=== PATIENT | female | born 1965 | race Caucasian/White ===

== ENCOUNTER 2024-05-28 08:09 | Emergency (ER) | payer OTHER, SELFPAY ==
[2024-05-28 08:26] VITALS: BP 130/77; PULSE 80; RESP 20; TEMP 36.4; O2SAT 100
[2024-05-28 08:38] VITALS: BP 130/77; PULSE 80; RESP 20; TEMP 36.4; O2SAT 100
--- NOTE | 2024-05-28 08:55 | ED.EAR ---
HPI - Ear Problem General Chief complaint: Dental/Oral Stated complaint: tooth/ear/throat History of Present Illness HPI Narrative: Patient presents with right ear pain. Patient denies any drainage from her ear states she also has seasonal allergies and takes her singular at bedtime but is not taking anything else [id number] for her symptoms. No fever no cough no shortness of breath. Related Data Home Medications Medication Instructions Recorded Confirmed fluticasone fur. 200 mcg-umeclid inhalation 05/28/24 62.5 mcg-vilant 25 mcg inhalat.powder (Trelegy Ellipta) semaglutide (weight loss) 0.25 mg subcut 05/28/24 mg/0.5 mL subcutaneous pen injector (Wegovy) Allergies Allergy/AdvReac Type Severity Reaction Status Date / Time No Known Allergies Allergy Verified 05/28/24 08:31 Review of Systems Review of Systems: CONSTITUTIONAL: Denies chills, or sweats. Reports fever and generalized body aches EYES: Denies visual changes, redness, or discharge. ENT: Denies otalgia. Reports nasal congestion runny nose and sore throat CARDIOVASCULAR: Denies chest pain, palpitations, or edema. RESPIRATORY: Denies dyspnea. Reports occasional cough GASTROINTESTINAL: Denies abdominal pain, nausea, vomiting, or diarrhea. GENITOURINARY: Denies dysuria or hematuria. SKIN: Denies rash or itching. MUSCULOSKELETAL: Denies back pain, joint pain, or myalgia. Reports generalized body aches NEUROLOGIC: Denies headache, numbness, or weakness. PSYCHIATRIC: Denies anxiety or depression. PMFSH Comments At time of signature, agree with nursing past medical, surgical, social and family history. There is no relevant family history pertinent to the presenting complaint Exam Narrative: The patient is a well-developed, well-nourished in no acute distress. SKIN: Skin is warm and dry without erythema, swelling or exudate. There is good turgor. No tenting. HEAD: Atraumatic. Normocephalic. No temporal or scalp tenderness. EYES: Moist and bright. Sclera and conjunctivae normal. No discharge. PERRLA. Extraocular motions intact. Gross visual acuity intact. EARS: Pinna is normal shape and contour. Clear external auditory canals. TM pearly whitley with good cone of light, no erythema or suppuration. Bilateral cerumen noted no gross hearing deficit. NOSE: pink, moist mucosa with good air movement. Clear rhinorrhea without nasal flaring. Septum midline. Mouth: moist mucous membranes. THROAT; mild erythema noted to posterior oropharynx with moderate postnasal drainage. Without exudate or ulceration.. Uvula midline. Normal movement of soft palate. NECK: Supple and nontender with full range of motion without discomfort. No meningeal signs. LUNGS: Equal and bilateral breath sounds without wheezes, rales or rhonchi. CHEST: The chest wall is without retractions or use of accessory muscles. HEART: Has a regular rate and rhythm without murmur, gallops, click or rub. ABDOMEN: Soft, nontender with positive active bowel sounds. No rebound tenderness. EXTREMITIES: Without cyanosis, clubbing or edema. Equal 2+ distal pulses and 2 second capillary refill noted. NEUROLOGIC: alert, active, . The patient moves all extremities with normal muscle strength. Normal muscle tone is noted. Normal coordination is noted. NO focal neurological findings noted. Course Course Level of Care: Express Care Visit Vital Signs Vital signs: Vital Signs Temperature 36.4 C 05/28/24 08:26 Pulse Rate 80 05/28/24 08:26 Respiratory Rate 20 05/28/24 08:26 Blood Pressure 130/77 05/28/24 08:26 Pulse Oximetry 100 05/28/24 08:26 Oxygen Delivery Room Air 05/28/24 08:26 Temperature 36.4 C 05/28/24 08:38 Pulse Rate 80 05/28/24 08:38 Respiratory Rate 20 05/28/24 08:38 Blood Pressure 130/77 05/28/24 08:38 Pulse Oximetry 100 05/28/24 08:38 Oxygen Delivery Room Air 05/28/24 08:38 Medical Decision Making Vital Signs Vital Signs: Vi
== END 2024-05-28 09:08 | disposition home or self-care (01) ==
LOC: EXPBETH 08:15
PROVIDERS: Emergency Provider Nurse Practitioner Family
DX: H69.91 Unspecified Eustachian tube disorder, right ear (principal); H92.01 Otalgia, right ear
CPT/HCPCS: 99203; G0463

== ENCOUNTER 2025-01-14 11:03 | Emergency (ER) | payer OTHER, SELFPAY ==
--- OUTSIDE RECORDS SUMMARY | 2025-01-14 11:05 | XMS_ITS | Clinical Summary ---
Author Organization [facility] Address [address], [place] Care Team Providers Care Recreation Program Coordinator Name Role Phone Kade Newsome (Jeffy) Primary Care Provide r Social History Tobacco Use Types Packs/Day Years Used Date Smoking Tobacco: Never Assessed Comments Unknown Sex and Gender Information Value Date Recorded Sex Assigned at Not on file Legal Sex Female 1:27 PM EDT Gender Identity Not on file Sexual Orientation Not on file Plan of Treatment Health Maintenance Due Date Last Done Comments CT Colonography 1967 Colon Cancer Screening Year Sigmoidoscopy 1967 Colonoscopy 1967 Colorectal Cancer Screening 1967 FIT 1967 HIV Screening 1967 Hepatitis C Screening 1967 Pap Smear 1967 Annual Physical 1969 DTAP,Tdap and Td Vaccines (1 - Tdap) 1985 Cervical Cancer Screening 1997 HPV/Cotest 1997 Mammogram 2007 Cologuard DNA Screen for Colon CA 2012 Fecal Occult Blood Testing 2012 Pneumococcal Vaccine: 50+ Ye ars (1 of 1 - PCV) 2017 Shingles Vaccine (1 of 2) 2017 Depression Screening Yearly 10/04/2024 Influenza Vaccine 05/04/2025 HIB Vaccines Aged Out No longer eligi ble based on patient's age to complete this topic Pneumococcal Vaccine: Peds ( 0-5Y) & At-Risk Patients (6- 49Y) Aged Out No longer elig ible based on patient's age to complete this topic Insurance [place] [employer] [id number] [employer] Care Teams Recreation Program Coordinator Relationship Specialty Start Date End Date Kade Newsome MD (Ioannis) [address] [place] [id number] PCP - General Family Medicine 06/01/23
--- OUTSIDE RECORDS SUMMARY | 2025-01-14 11:05 | XMS_ITS ---
Author Organization [facility] Address [address] [place] [address] Care Team Providers Care Crm Marketing Manager Name Role Phone Jeffy Newsome MD) Primary Care Provide Yulisa Bowden Unavailable [phone] Allergies Allergen (clinical drug ingredient) Drug/Non Drug Allergy documented on EMR Reaction Allergy Type Onset Date Status Penicillin rash Drug Allergy Active Results Component Value Reference Range Notes Urinalysis Reviewed date:09/18/2023 07:22:06 PM Interpretation:Normal Performing Lab: Notes/Report: Normal MERCEDES neg NEG - NEG mercedes/ul NIT neg NEG - NEG URO 0.2 NORM - NORM mg/dl PRO neg NEG - NEG mg/dl pH 6.0 5 - 7.01 BLO neg NEG - NEG Que/ul SG 1.025 1.000 - 1.010 KET neg NEG - NEG mg/dl NEGIN neg NEG - NEG mg/dl GLU neg NEG - NEG mg/dl *Urine Cx [id number] Reviewed date:09/23/2023 09:19:36 AM Interpretation:Positive Performing Lab:[facility], [address] [place] [address], [place], Phone - [phone], Director - Mago Notes/Report: Urine Culture, Routine Final report Result 1 Escherichia coli Cefazolin <=4 ug/mL Cefazolin with an SHIVANI <=16 predicts susceptibility to the oral agents cefaclor, cefdinir, cefpodoxime, cefprozil, cefuroxime, cephalexin, and loracarbef when used for therapy of uncomplicated urinary tract infections due to E. coli, Klebsiella pneumoniae, and Proteus mirabilis. 10,000-25,000 colony forming units per mL Antimicrobial Susceptibility S = Susceptible; I = Intermediate; R = Resistant P = Positive; N = Negative MICS are expressed in micrograms per mL Antibiotic RSLT#1 RSLT#2 RSLT#3 RSLT#4 Amoxicillin/Clavulanic Acid S Ampicillin S Cefepime S Ceftriaxone S Cefuroxime S Ciprofloxacin S Ertapenem S Gentamicin S Imipenem S Levofloxacin S Meropenem S Nitrofurantoin S Piperacillin/Tazobactam S Tetracycline S Tobramycin S Trimethoprim/Sulfa S REASON FOR VISIT frequency, burning, lower back pain [id number], cough, sinus drainage x5days Medications Medication SIG (Take, Route, Frequency, Duration) Notes Start Date End Date Status Fluticasone Propionate 50 MCG/ACT 2 spray in each nostril Nasally once a day for 7 day(s) 09/18/2023 Active guaiFENesin ER 1200 MG 1 tablet as neede d Orally every 12 hrs for 5 days 09/18/2023 09/23/2023 Active Trelegy Ellipta Acti ve Lisinopril Active Social History Tobacco Use: Social History Observation Description Date Details (start date - stop date) Never Smoker NA - NA Tobacco Use/Smoking Question Answer Notes You are a nonsmoker Tobacco use other than smoking: Question Answer Notes Are you an other tobacco user? No Vital Signs Temperature 97.5 degrees Fahrenheit 09/18/20 23 Blood pressure systolic 136 mm Hg 09/18/20 23 Blood pressure diastolic 83 mm Hg 023 Heart Rate 88 /min 09/18/2023 Respiratory Rate 16 /min 09/18/2023 Height 67 in 09/18/2023 Weight 375 lbs 09/18/2023 BMI 58.73 kg/m2 09/18/2023 Oximetry 98 % 09/18/2023 Weight-kg 170.1 kg 09/18/2023 Encounters Encounter Location Date Provider Diagnosis [facility] [address] [place] [address] 09/18/2023 Yulisa Marino Dysuria R30.0 ; Acute URI J06.9 and Low back pain, unspecified back pain laterality, unspecified chronicity, unspecified whether sciatica present M54.50 Assessments Encounter Date Diagnosis (ICD Code) Assessment Notes Treatment Notes Treatment Clinical Notes Section Notes 09/18/2023 Dysuria (ICD-10 - R30.0) You were seen in our office today for symptoms of an acute urinary tract infection.Your rapid Urine Analysis at our office is NORMAL.Will delay antibiotics until culture results available. It is important that you stay hydrated. Increase water intake.A urine specimen has been sent to the lab for culture. The results will be posted online on your patient portal in approximately 2-4 days. We will contact you if a change in your treatment is required.Follow up with urgent care or your primary care provider/gynecolo gist if your symptoms don't improve in 3 days.You should be evaluated in the emergency department or urgent care facility if your symptoms worsen (high fever, repeated vomiting, severe abdominal pain, chest pain, breathing difficulty). 09/18/2023 Acute URI (ICD-10 - J06.9) Your symptoms are suggestive of an upper respiratory infection, most commonly of viral origin.For relief from soreness of throat use Chloraseptic spray, Cepachol lozenges, or salt water gargles.Take OTC Acetaminophen (Tylenol) and/or Ibuprofen (Advil, Motrin) for fever or pain relief if required.Take warm steam inhalation, warm compresses, OTC Mucinex to loosen up your secretions, thus promoting their drainage.Use Saline or Flonase nasal spray to relieve nasal blockage and congestion.Rest, keep yourself hydrated and avoid exertion.Your illness is contagious and hence avoid close contact and sharing of personal materials with others. Take simple home food and temporarily avoid fast food, greasy food, carbonated drinks, smoking and alcohol intake during the illness. Return to the Urgent care or contact Primary Care Provider if no improvement in symptoms within 3-5 days.Reach the Emergency Department for: any worsening of symptoms, new fever >101, high fever >104F, recurrent vomiting, inability to retain fluids, breathing difficulty, chest pain. 09/18/2023 Low back pain, unspecified back pain laterality, unspecified chronicity, unspecified whether sciatica present (ICD-10 - M54.50) 09/18/2023 Other Access your visit summary and after-visit care instructions via our online Patient Portal by visiting [email or web address]. Smoking is exceedingly harmful to your heart and lung health. Please call 8-377-QHBS-NOW or visit [email or web address].g ov/[email or web address] to help quit, and improve your fpc health. The home is the most common place where children and non-smoking adults are exposed to secondhand smoke. Secondhand smoke causes increased risk of asthma, certain cancers or infections, and heart disease in children and adults. Please follow up with your primary care provider if any other concerns: If you do not have a primary care provider you can obtain one by: a) Calling [phone] or b) Going to [email or web address] Plan Of Treatment Medication Medication Name Sig Start Date Stop Date Notes Fluticasone Propionate 50 MCG/ACT 2 spray in each nostril Nasally once a day for 7 day(s) 09/18/2023 guaiFENesin ER 1200 MG 1 tablet as neede d Orally every 12 hrs for 5 days 09/18/2023 09/23/2023 Treatment Notes Assessment Notes Dysuria You were seen in our office today for symptoms of an acute urinary tract infection.Your rapid Urine Analysis at our office is NORMAL.Will delay antibiotics until culture results available. It is important that you stay hydrated. Increase water intake.A urine specimen has been sent to the lab for culture. The results will be posted online on your patient portal in approximately 2-4 days. We will contact you if a change in your treatment is required.Follow up with urgent care or your primary care provider/central control room operator if your symptoms don't improve in 3 days.You should be evaluated in the emergency department or urgent care facility if your symptoms worsen (high fever, repeated vomiting, severe abdominal pain, chest pain, breathing difficulty). Acute URI Your symptoms are suggestive of an upper respiratory infection, most commonly of viral origin.For relief from soreness of throat use Chloraseptic spray, Cepachol lozenges, or salt water gargles.Take OTC Acetaminophen (Tylenol) and/or Ibuprofen (Advil, Motrin) for fever or pain relief if required.Take warm steam inhalation, warm compresses, OTC Mucinex to loosen up your secretions, thus promoting their drainage.Use Saline or Flonase nasal spray to relieve nasal blockage and congestion.Rest, keep yourself hydrated and avoid exertion.Your illness is contagious and hence avoid close contact and sharing of personal materials with others. Take simple home food and temporarily avoid fast food, greasy food, carbonated drinks, smoking and alcohol intake during the illness. Return to the Urgent care or contact Primary Care Provider if no improvement in symptoms within 3-5 days.Reach the Emergency Department for: any worsening of symptoms, new fever >101, high fever >104F, recurrent vomiting, inability to retain fluids, breathing difficulty, chest pain. Other Access your visit summary and after-visit care instructions via our online Patient Portal by visiting [email or web address]. Smoking is exceedingly harmful to your heart and lung health. Please call 4-745-LYZQ-NOW or visit https://www.cdc.gov/tobacco/ to help quit, and improve your fpc health. The home is the most common place where children and non-smoking adults are exposed to secondhand smoke. Secondhand smoke causes increased risk of asthma, certain cancers or infections, and heart disease in children and adults. Please follow up with your primary care provider if any other concerns: If you do not have a primary care provider you can obtain one by: a) Calling [phone] or b) Going to [email or web address] Procedure Notes * Category Sub-Category Detail Notes GH - Scribe Attestation I: DRAKE FIGUEROA am scribing for and in the presence of:: YULISA MARINO NP .: . I: YULISA MARINO NP personally performed all ser vices described in this documentation, as scribed by: DRAKE FIGUEROA in my presence. I have reviewed the document ation and it is both accurate and complete.: Reviewed - Provider Coding Guidelines Optional Quick Documentation 1. Complexity and Risk No t Documented Above: 2. Relevant Comorbidities Addressed Not Documented Above: Coding Assistance 1. Medical Decision Making (MDM): Agree to appropriately code using the 2 highest levels from the 3 below sections under Medical Decision Making C. Risk: B. Data: A. Addressed Problems: 2. Alternative Billing Time: Not Applica ble Coding Assistance zzDO NOT USE Medical Decision Making (MDM): Progress Notes * PHILIP THOMPSON:1965 ( 57 yo F)Acc No.[id number]:09/18/2023 Patient: PASTORA TREJO Provider: Elizabeth Marino NP :1965 A ge:57 Y S ex:Female Date:09/18/2023 External Visit ID:[id number] Address:[facility] [address] [place], [place] Pcp:Jeffy Newsome MD (John) Subjective: * Chief Complaints: * F requency, burning, lower back pain [id number], sinus drainage x5days * HPI: - General Complaint: 57 y/o female presents to with c/o lower back pain, dysuria, frequency of urination x 1 month; sinus congestion, cough, sinus pressure, PND, fatigues x 5 days. Has frequent long distance road trips in the recent past. Has tried OTC for sx. Denies fever, chills, belly pain, vaginal discharge, ear pain, CP, wheezing, SOB, or N/V/D. * ROS: s ee HPI. * Medical History: * Family History: M other: alive, diagnosed with Diabetes, Hypertension. F ather: . N o Family Hx of: diagnosed with Heart Disease, Cancer, Stroke, Mental Illness. * Social History: - Tobacco Use: T obacco Use/Smoking Y ou are a n onsmoker Tobacco use other than smoking A re you an other tobacco user? N o 2 021 Ebola Screening: H [facility] you [facility] within the past month?: No. Do you have fever and/or severe headache, fatigue, muscle pain, vomiting, diarrhea, abdominal pain, rash or unexplained bleeding: N/A. 2 021 - GH Quality: F brenden Shot W ould you like to receive a flu shot today? (Document all responses in immunizations) N o, Previously received (Choose [facility] - Flu Previously Received) BMI W ere height and weight measured and recorded today? Y es 2 021 - Coronavirus: C oronavirus H ave you been exposed to COVID-19 in the past 14 days? N o COVID Vaccine H ave you received the COVID Vaccine? N o * Medications: T akingTrelegy Ellipta Lisinopril Taking Trelegy Ellipta Taking Lisinopril DiscontinuedmethylPREDNISolone 4 MG Tablet Therapy Pack as directed Orally Once a dayAlbuterol Sulfate HFA 108 (90 Base) MCG/ACT Aerosol Solution 1 puff as needed Inhalation every 4 hrsFluticasone Propionate 50 MCG/ACT Suspension 1 spray in each nostril Nasally Once a dayAlbuterol Sulfate HFA 108 (90 Base) MCG/ACT Aerosol Solution 1-2 puffs as needed for cough or wheeze Inhalation every 4 hrsPromethazine-DM 6.25-15 MG/5ML Syrup 5 ml as needed for cough Orally every 6 hrsMedication List reviewed and reconciled with the patientDiscontinued methylPREDNISolone 4 MG Tablet Therapy Pack as directed Orally Once a dayDiscontinued Albuterol Sulfate HFA 108 (90 Base) MCG/ACT Aerosol Solution 1 puff as needed Inhalation every 4 hrsDiscontinued Fluticasone Propionate 50 MCG/ACT Suspension 1 spray in each nostril Nasally Once a dayDiscontinued Albuterol Sulfate HFA 108 (90 Base) MCG/ACT Aerosol Solution 1-2 puffs as needed for cough or wheeze Inhalation every 4 hrsDiscontinued Promethazine-DM 6.25-15 MG/5ML Syrup 5 ml as needed for cough Orally every 6 hrsMedication List reviewed and reconciled with the patient * Allergies: P enicillin: rashno[Allergies Verified] Objective: * Vitals: T emp97.5 F, HR88 /min, BP136/83 mm Hg, RR16 /min, Oxygen sat %98 %, Ht 67 in, Wt375 lbs, Wt-kg 170.1 kg, BMI58.73 Index. * Examination: G eneral PE: GENERAL: n o acute distress, well developed, well nourished. HEAD: n ormocephalic, atraumatic, tender over frontal sinus. EYES: s clera non-icteric, no conjunctival injection. EARS/NOSE: t ympanic membranes clear bilaterally, No redness, normal landmarks and light reflexes, canal clear without cerumen impaction. NOSE m ucosal edema and erythema. MOUTH/THROAT m oist mucous membranes, no erythema, uvula midline, no tonsillar edema noted, no exudates, no ulcers or other lesions, no drooling. HEART: r egular rate and rhythm. LUNGS: N ormal: clear to auscultation, No respiratory distress, no accessory muscle use, No rales, No rhonchi, No wheezing. BACK: n o costovertebral angle (CVA) tenderness,. ABDOMINAL: s oft, non-tender, No guarding, rebound or rigidity. PSYCHIATRIC: A ffect normal, Interactive, conversant. NEUROLOGIC: a ppears alert and oriented x3, speech normal, moves all 4 extremities, face symmetric. Assessment: * Assessment: 1. A cute URI - J06.9 (Primary) 2 . D ysuria - R30.0 3 . L ow back pain, unspecified back pain laterality, unspecified chronicity, unspecified whether sciatica present - M54.50? Plan: * Treatment: 2. D ysuria L AB: *Urine Cx [id number] P ositive Value Reference Range U rine Culture, Routine Final report A - * R esult 1 Escherichia coli A - * Katty Hunt 09/23/2023 0 9:17:38 AM > urine culture positive, antibiotic needed. Called x 2, LVM, email sent. See phone note. ?LAB: Urinalysis?Normal* Value Reference Range L EU neg NEG - NEG mercedes/ul * N IT neg NEG - NEG * U RO 0.2 NORM - NORM mg/dl * P RO neg NEG - NEG mg/dl * p H 6.0 5 - 7.01 * B LO neg NEG - NEG Que/ul * S G 1.025 1.000 - 1.010 * K ET neg NEG - NEG mg/dl * B IL neg NEG - NEG mg/dl * G BRENDEN neg NEG - NEG mg/dl * Drake Figueroa 09/18/2023 07: 22:01 PM > Notes: You were seen in our office today for symptoms of an acute urinary tract infection. Your rapid Urine Analysis at our office is NORMAL. Will delay antibiotics until culture results available. It is important that you stay hydrated. Increase water intake. A urine specimen has been sent to the lab for culture.The results will be posted online on your patient portal in approximately 2-4 days. We will contactyou if a change in your treatment is required. Follow up with urgent care or your primary care provider/central control room operator if your symptoms don't improve in 3 days. You should be evaluated in the emergency department or urgent care facility if your symptoms worsen(high fever, repeated vomiting, severe abdominal pain, chest pain, breathing difficulty).? 3.?Low back pain, unspecified back pain laterality, unspecified chronicity, unspecified whether sciatica present?LAB: Urinalysis?Normal* Value Reference Range L EU neg NEG - NEG mercedes/ul * N IT neg NEG - NEG * U RO 0.2 NORM - NORM mg/dl * P RO neg NEG - NEG mg/dl * p H 6.0 5 - 7.01 * B LO neg NEG - NEG Que/ul * S G 1.025 1.000 - 1.010 * K ET neg NEG - NEG mg/dl * B IL neg NEG - NEG mg/dl * G BRENDEN neg NEG - NEG mg/dl * Drake Figueroa 09/18/2023 07: 22:01 PM > 4.?Others? Notes: Access your visit summary and after-visit care instructions via our online Patient Portal by visitingEchoing Green.[employer]. Smoking is exceedingly harmful to your heart and lung health. Please call 1-628-RHID-NOW or visithttps://www.cdc.gov/tobacco/to help quit, and improve your terminal manager health. The home is the most common place where children and non- smoking adults are exposed to secondhand smoke. Secondhand smoke causes increased risk of asthma, certain cancers or infections, and heart disease in children and adults. Please follow up with your primary care provider if any other concerns: If you do not have a primary care provider you can obtain one by: a) Calling [phone] or b) Going [email or web address]?? * Procedures: G H - Provider Coding Guidelines: Optional Quick Documentation 1 . Complexity and Risk Not Documented Above? 2 . Relevant Comorbidities Addressed Not Documented Above _ ____ Coding Assistance M edical Decision Making (MDM) _ ____ G H - Scribe: Attestation Vale boss scribing for and in the presence of: Elizabeth MARINO NP . . LAITH MILLER ersonally performed all services described in this documentation, as scribed by Manjit FIGUEROA in my presence. I have reviewed the documentation and it is both accurate and complete. R eviewed * Procedure Codes: 8 1003 URINALYSIS, AUTO, W/O SCOPE, Modifiers: QW Billing Information: * Visit Code: 09129 URGENT CARE VISIT. * Procedure Codes: 83664 URINALYSIS, AUTO, W/O SCOPE. Modifiers: QW * Sign off status: Completed true * Provider: Elizabeth Marino NP Date: 1 11/19/2022 Generated for Amandai kylie/Scottie/eTransmitting on: 0 01/14/2025 12:05 PM EDT History and Physical Notes * HPI (History of Present Illness) Category Sub-Category Detail Notes Category Not es -General Complaint 57 y/o fe male presents to with c/o lower back pain, dysuria, frequency of urination x 1 month; sinus congestion, cough, sinus pressure, PND, fatigues x 5 days. Has frequent long distance road trips in the recent past. Has tried OTC for sx. Denies fever, chills, belly pain, vaginal discharge, ear pain, CP, wheezing, SOB, or N/V/D. Examination Category Sub-Category Detail Notes Category Not es General PE GENERAL: no acute distres s, well developed, well nourished HEAD: normocephalic, atrau matic, tender over frontal sinus EYES: sclera non-icteric, no conjunctival injection MOUTH/THROAT moist mucous membran es, no erythema, uvula midline, no tonsillar edema noted, no exudates, no ulcers or other lesions, no drooling HEART: regular rate and rhy thm LUNGS: Normal: clear to aus cultation, No respiratory distress, no accessory muscle use, No rales, No rhonchi, No wheezing ABDOMINAL: soft, non-tender, No guarding, rebound or rigidity BACK: no costovertebral an gle (CVA) tenderness, NEUROLOGIC: appears alert and or iented x3, speech normal, moves all 4 extremities, face symmetric PSYCHIATRIC: Affect normal, Inter active, conversant EARS/NOSE: tympanic membranes c lear bilaterally, No redness, normal landmarks and light reflexes, canal clear without cerumen impaction NOSE mucosal edema and er ythema
--- OUTSIDE RECORDS SUMMARY | 2025-01-14 11:05 | XMS_ITS ---
Author Organization [facility] us Address [address] [place] [address] Care Team Providers Care Product Development Specialist Name Role Phone Mercedez WATKINS, Jeffy Weinberg) Primary Care Provide r Katty Harris Unavailable [phone] REASON FOR VISIT urine cx result Medications Medication SIG (Take, Route, Fr equency, Duration) Notes Start Date End Date Status Macrobid 100 MG 1 capsule with food Orally every 12 hrs for 5 days 09/23/2023 09/28/2023 Active Encounters Encounter Location Date Provider Diagnosis [facility] [address] [place] [address] 09/23/2023 Katty Hunt Plan Of Treatment Medication Medication Name Sig Start Date Stop Date Notes Macrobid 100 MG 1 capsule with food Orally every 12 hrs for 5 days 09/23/2023 09/28/2023 Progress Notes * LEXUS THOMPSONOB:1965 ( 57 yo F)Acc No.[id number]:09/23/2023 Patient: PASTORA TREJO :1965 A ge:57 Y S ex:Female Address:[address] [place], [address] * Refills Start Macrobid Capsule, 100 MG, Orally, 10 Capsule, 1 capsule with food, every 12 hrs, 5 days * true * Date: Generated for Printi ng/Faxing/eTransmitting on: 0 01/14/2025 12:05 PM EDT
--- OUTSIDE RECORDS SUMMARY | 2025-01-14 11:05 | XMS_ITS ---
Author Organization [facility] us Address [address] [place] [address] Care Team Providers Care Controls Operator Molded Goods Name Role Phone Mercedez WATKINS, Jeffy Weinberg) Primary Care Provide Katty Chavez [facility] [phone] Medications Medication SIG (Take, Route, Fr equency, Duration) Notes Start Date End Date Status Macrobid 100 MG 1 capsule with food Orally every 12 hrs for 5 days 09/23/2023 09/28/2023 Active Encounters Encounter Location Date Provider Diagnosis [address] [address] 09/23/2023 Katty Hunt Plan Of Treatment Medication Medication Name Sig Start Date Stop Date Notes Macrobid 100 MG 1 capsule with food Orally every 12 hrs for 5 days 09/23/2023 09/28/2023 Progress Notes * LEXUS THOMPSONOB:1965 ( 57 yo F)Acc No.[id number]:09/23/2023 Patient: PASTORA TREJO :1965 A ge:57 Y S ex:Female Address:[address] [place], [address] * Refills Start Macrobid Capsule, 100 MG, Orally, 10 Capsule, 1 capsule with food, every 12 hrs, 5 days * true * Date: Generated for Printi ng/Faxing/eTransmitting on: 0 01/14/2025 12:05 PM EDT
--- OUTSIDE RECORDS SUMMARY | 2025-01-14 11:05 | XMS_ITS | Patient Health Record ---
Author Organization [facility] Address [address] [place] [address] Care Team Providers Care Gasket Maker Name Role Phone Mercedez WATKINS, Jeffy Weinberg) Primary Care Provide r Unavailable Allergies Allergen (clinical drug ingredient) Drug/Non Drug Allergy documented on EMR Reaction Allergy Type Onset Date Status Penicillin rash Drug Allergy Active Reason For Referral No Information Medications Medication SIG (Take, Route, Frequency, Duration) Notes Start Date End Date Status Trelegy Ellipta Acti ve Lisinopril Active Fluticasone Propionate 50 MCG/ACT 2 spray in each nostril Nasally once a day for 7 day(s) 09/18/2023 Active Social History Tobacco Use: Social History Observation Description Date Details (start date - stop date) Never Smoker NA - NA Tobacco Use/Smoking Question Answer Notes You are a nonsmoker Tobacco use other than smoking: Question Answer Notes Are you an other tobacco user? No Plan Of Treatment No Information Insurance Providers Payer Name Payer Address Payer Phone Subscriber Number Group Number Insured Name Patient Relationship to Insured Coverage Start Date Coverage End Date [facility] [address] [place] [address] [id number] DONNA PASTORA Self - patient is the insured Medical (General) History Medical History History ICD Code Breathing difficult R06.89
[2025-01-14 11:08] VITALS: BP 126/91; PULSE 81; RESP 20; TEMP 36.3; O2SAT 99
[2025-01-14 11:51] LABS: EDUAAPPEAR Clear; EDUABILI Negative (Negative); EDUABLOOD Negative (Negative); EDUACOLOR1 Dark; EDUAGLUCOSE Negative (Negative); EDUAKETONE Negative (Negative); EDUALEUKO Negative (Negative); EDUANITRATE Negative (Negative); EDUAPH 5.5; EDUAPROTEIN Negative (Negative); EDUAUROBILI 0.2
--- NOTE | 2025-01-14 12:17 | ED.GENADULT ---
HPI - General Adult General Chief complaint: Urogenital-Female Stated complaint: Sore Throat/Cough/Urinary Problem Source: patient Mode of arrival: ambulatory Limitations: no limitations History of Present Illness HPI narrative: Pt presents for evaluation of respiratory issues. Symptom onset 1 week ago. Symptoms include sinus congestion, mucopurulent discharge from the nares, sore throat and cough. Her mother has a similar cough. No fever, chills, nausea, vomiting, diarrhea. She also reports urinary symptoms for last 3 weeks that include dysuria, urinary frequency, no pulling sensation in her vaginal region. She denies any vaginal bleeding or discharge. She is postmenopausal. She has a history of fibroids. No concern for STI. She is and they have very limited sexual activity. Related Data Home Medications ?Medication ?Instructions ?Recorded ?Confirmed ?Last Taken ?Type fluticasone fur. 200 mcg-umeclid inhalation 05/28/24 Unknown History 62.5 mcg-vilant 25 mcg inhalat.powder (Trelegy Ellipta) semaglutide (weight loss) 0.25 mg subcut 05/28/24 Unknown History mg/0.5 mL subcutaneous pen injector (Wegovy) montelukast 10 mg tablet 10 mg PO DAILY 01/14/25 Unknown History Allergies Allergy/AdvReac Type Severity Reaction Status Date / Time Penicillins Allergy Intermediate Rash Verified 01/14/25 11:32 Review of Systems Review of Systems: CONSTITUTIONAL: Denies fever, chills, or sweats. EYES: Denies visual changes, redness, or discharge. ENT: Reports sinus congestion, sore throat and mucopurulent discharge from the nares CARDIOVASCULAR: Denies chest pain, palpitations, or edema. RESPIRATORY: Reports cough. Denies dyspnea. GASTROINTESTINAL: Denies abdominal pain, nausea, vomiting, or diarrhea. GENITOURINARY: Reports dysuria, urinary frequency and a pulling sensation in her vaginal area. Denies bleeding and discharge. SKIN: Denies rash or itching. MUSCULOSKELETAL: Denies back pain, joint pain, or myalgia. NEUROLOGIC: Denies headache, numbness, dizziness, or weakness. PSYCHIATRIC: Denies anxiety or depression. [facility] Past Medical History Medical History Fibroid Surgical History Surgical History No pertinent past surgical history Family History Family History Mother Family history non-contributory Social History Social History Smoking status: Never smoker Living arrangements: with family Gender identity (if verbalized by the patient): Female Sexual Orientation (if Verbalized by the Patient): Straight or Heterosexual Spiritual care concerns: No Exam Narrative: GENERAL: Well-appearing, well-nourished, and in no acute distress. HEAD: Normocephalic, atraumatic. EYES: PERRLA and EOMI. ENT: Nares clear, no rhinorrhea or epistaxis. Mucous membranes moist. Oropharynx without tonsillar hypertrophy exudate or other lesions. Bilateral TMs pearly aguirre nonbulging NECK: Supple. No adenopathy or masses. No carotid bruits or JVD CHEST: Clear to auscultation. No respiratory distress. No wheezes rales or rhonchi HEART: Regular rate and rhythm. No murmur heard. Normal peripheral pulses. ABDOMEN: Soft, nontender, nondistended, normal active bowel sounds. EXTREMITIES: Normal range of motion. No edema. SKIN: Warm, dry, no rash. NEURO: No focal deficits. Alert and oriented x3. PSYCH: Normal mood and affect. Course Course Emergency Course: This is a 59-year-old female who presented for evaluation of respiratory symptoms. She meets criteria for bacterial sinusitis based upon the presence of mucopurulent discharge and symptoms lasting longer than 1 week. Will discharge with Augmentin. She declined COVID and influenza testing. We did not check a strep as she declined or not change clinical management. It does not appear she has a UTI. I will send urine for culture. She declined STI testing and also testing for BV. Follow up with primary provider. Go to the ER for worsening symptoms. Pt in agreement with plan of care. Level of Care: Express Care Visit Vital Signs Vital signs: Vital Signs Temperature 36.3 C L 01/14/25 11:08 Pulse Rate 81 01/14/25 11:08 Respiratory Rate 20 01/14/25 11:08 Blood Pressure 126/91 H 01/14/25 11:08 Pulse Oximetry 99 01/14/25 11:08 Oxygen Delivery Room Air 01/14/25 11:08 Temperature 36.3 C L 01/14/25 11:08 Pulse Rate 81 01/14/25 11:08 Respiratory Rate 20 01/14/25 11:08 Blood Pressure 126/91 H 01/14/25 11:08 Pulse Oximetry 99 01/14/25 11:08 Oxygen Delivery Room Air 01/14/25 11:08 Medical Decision Making Vital Signs Vital Signs: Vital Signs Temperature 36.3 C L 01/14/25 11:08 Pulse Rate 81 01/14/25 11:08 Respiratory Rate 20 01/14/25 11:08 Blood Pressure 126/91 H 01/14/25 11:08 Pulse Oximetry 99 01/14/25 11:08 Oxygen Delivery Room Air 01/14/25 11:08 Temperature 36.3 C L 01/14/25 11:08 Pulse Rate 81 01/14/25 11:08 Respiratory Rate 20 01/14/25 11:08 Blood Pressure 126/91 H 01/14/25 11:08 Pulse Oximetry 99 01/14/25 11:08 Oxygen Delivery Room Air 01/14/25 11:08 Lab Data Labs: Lab Results 01/14/25 Range/Units 11:49 POC Urine Color Dark POC Urine Clarity Clear POC Urine pH 5.5 POC Ur Specif [place] 1.030 POC Urine Protein Negative (Negative) POC Ur Glucose (UA) Negative (Negative) POC Urine Ketones Negative (Negative) POC Urine Blood Negative (Negative) POC Urine Nitrite Negative (Negative) POC Urine Bilirubin Negative (Negative) POC Urine Urobilinogen 0.2 POC U Leukocyte Esteras Negative (Negative) Discharge Plan Discharge Clinical Impression: Sinusitis, Lower urinary tract symptoms Patient Disposition: Home Condition: Stable Instructions: Antibiotic Form, Sinusitis (ED), Dysuria (ED) Patient Language: Icelandic Prescriptions: New doxycycline hyclate 100 mg capsule 100 mg PO Q12H 10 Days Qty: 20 0RF No Action montelukast 10 mg tablet 10 mg PO DAILY Trelegy Ellipta 200-62.5-25 mcg blister with device INHALATION Wegovy 0.25 mg/0.5 mL pen injector SUBCUT fluticasone propionate [Flonase Allergy Relief] 50 mcg/actuation spray,suspension 2 spray intranasal DAILY Qty: 16 0RF Rx Instructions: administer into each nostril Follow-up/Referrals: George Espinosa MD [Physician] - Time of Disposition: 12:14
== END 2025-01-14 12:18 | disposition home or self-care (01) ==
PROVIDERS: Emergency Provider Nurse Practitioner
DX: J32.9 Chronic sinusitis, unspecified (principal); R30.0 Dysuria; R35.0 Frequency of micturition
CPT/HCPCS: 81003; 87086; 99213; G0463

== ENCOUNTER 2025-08-17 18:08 | Emergency (ER) | payer OTHER, SELFPAY ==
[2025-08-17 18:17] VITALS: BP 185/64; PULSE 87; RESP 20; TEMP 36.6; O2SAT 97
--- NOTE | 2025-08-17 18:34 | ED.GENADULT ---
HPI - General Adult General Chief complaint: Urogenital-Female Stated complaint: Urinary Problem/Cough Time Seen by Provider: 08/17/25 18:35 Source: patient, RN notes reviewed and old records reviewed Mode of arrival: ambulatory Limitations: no limitations History of Present Illness HPI narrative: 59 year old female who presents to [facility] care with multiple complaints. She reports that she has had 3-4 days of right eye redness with crusting of eye and greenish mucous noted from eye after using new mascara, has used hot compresses to her eye, denies any visual changes or any sharp pain to her right eye. She reports one week duration of increased cough of greenish mucous, reports history of long COVID with hospitalization for COVID for 10 days, Patient reports that she does have Nebulizer at home which she has been using. She also reports 3 week duration or urgency frequency and burning with urination. Patient reports no fevers chills or body aches, denies any sore throat or ear pain. She states that she has been taking Mucinex, NyQuil Vitamin C and also crangberry pills. MD complaint: right eye redness drainage, cough, urinary symptoms Onset (ago): week(s) (3 weeks urinary symptoms, 1 week cough, 3 days of right eye redness and mucous drainage) Severity: moderate Treatments prior to arrival: other (Mucinex, NyQuil, vitamin C and cranberry pills, used nebulizer and applied warm compresses to righ eye) Related Data Home Medications ?Medication ?Instructions ?Recorded ?Confirmed ?Last Taken ?Type ergocalciferol (vitamin D2) 1,250 08/17/25 Unknown History mcg (50,000 unit) capsule (Vitamin D2) Allergies Allergy/AdvReac Type Severity Reaction Status Date / Time Penicillins Allergy Intermediate Rash Verified 08/17/25 18:21 Milk Containing Products Allergy Unknown Unknown Verified 08/17/25 18:21 (Dairy) Review of Systems Review of Systems: CONSTITUTIONAL: Denies fever, chills, or sweats. EYES: Denies visual changes,positive for redness crusting and greenish muoid drainage right eye with no sharp pain. ENT: Reports rhinorrhea, congestion,no sore throat, no otalgia. CARDIOVASCULAR: Denies chest pain, palpitations, or edema. RESPIRATORY: reports cough no dyspnea. GASTROINTESTINAL: Denies abdominal pain, nausea, vomiting, or diarrhea. GENITOURINARY: reports dysuria, urinary frequency and urgency, no CVA tenderness or any visible hematuria. SKIN: Denies rash or itching. MUSCULOSKELETAL: Denies back pain, joint pain, or myalgia. NEUROLOGIC: Denies headache, numbness, or weakness. PSYCHIATRIC: Denies anxiety or depression. All systems reviewed & are unremarkable except as noted in HPI and below PMFSH Past Medical History Medical History Long COVID Fibroid Surgical History Surgical History No pertinent past surgical history Family History Family History Mother Family history non-contributory Social History Social History Smoking status: Never smoker Living arrangements: with family Gender identity (if verbalized by the patient): Female Sexual Orientation (if Verbalized by the Patient): Straight or Heterosexual Spiritual care concerns: No Comments At time of signature, agree with nursing past medical, surgical, social and family history. There is no relevant family history pertinent to the presenting complaint Exam Narrative: GENERAL: Well-appearing, well-nourished, obesity and in no acute distress. HEAD: Normocephalic, atraumatic. EYES: PERRLA and EOMI.right eye red with mucous drainage denies any visual changes or any shap pain to eye, sclera and conjunctiva red ENT: Nares clear, clear rhinorrhea no epistaxis. Mucous membranes moist. TM's normal with good light reflex, throat red with no swelling or exudates, post nasal drainage NECK: Supple.no lymphadenopathy CHEST: Clear to auscultation. No respiratory distress.cough noted productive at times.SAO2 97% on room air HEART: Regular rate and rhythm. No murmur heard. Normal peripheral pulses. ABDOMEN: Soft, nontender, nondistended, normal active bowel sounds.reports urinary burning with urgency and frequency denies any vaginal drainage. EXTREMITIES: Normal range of motion. No edema. SKIN: Warm, dry, no rash. NEURO: No focal deficits. Alert and oriented x3. Course Course Emergency Course: Patient is aware of diagnosis, understands and agrees to treatment plan.? Anticipatory guidance given.? Patient agrees to follow-up as directed and is aware of reasons to seek care at the emergency department. Portions of this record may have been created with voice recognition software Level of Care: Express Care Visit Vital Signs Vital signs: Vital Signs Temperature 36.6 C 08/17/25 18:17 Pulse Rate 87 08/17/25 18:17 Respiratory Rate 20 08/17/25 18:17 Blood Pressure 185/64 H 08/17/25 18:17 Pulse Oximetry 97 08/17/25 18:17 Oxygen Delivery Room Air 08/17/25 18:17 Temperature 36.6 C 08/17/25 18:17 Pulse Rate 87 08/17/25 18:17 Respiratory Rate 20 08/17/25 18:17 Blood Pressure 185/64 H 08/17/25 18:17 Pulse Oximetry 97 08/17/25 18:17 Oxygen Delivery Room Air 08/17/25 18:17 Reviewed Medical Decision Making MDM Narrative Medical decision making narrative: Exam findings and imaging show no acute concerns or changes; patient is non-toxic appearing and is in no distress.? Patient is appropriate for outpatient treatment and follow-up Differential Diagnosis Differential Diagnosis: URI with cough and congestion, right eye conjunctivitis, urinary tract infection symptoms, acute cough Medical Records Medical records reviewed: Yes I reviewed the external patient's medical records. Vital Signs Vital Signs: Vital Signs Temperature 36.6 C 08/17/25 18:17 Pulse Rate 87 08/17/25 18:17 Respiratory Rate 20 08/17/25 18:17 Blood Pressure 185/64 H 08/17/25 18:17 Pulse Oximetry 97 08/17/25 18:17 Oxygen Delivery Room Air 08/17/25 18:17 Temperature 36.6 C 08/17/25 18:17 Pulse Rate 87 08/17/25 18:17 Respiratory Rate 20 08/17/25 18:17 Blood Pressure 185/64 H 08/17/25 18:17 Pulse Oximetry 97 08/17/25 18:17 Oxygen Delivery Room Air 08/17/25 18:17 reviewed Lab Data Lab results reviewed: Yes I reviewed the patient's lab results. Lab results narrative: urine dip: slightly cloudy lorenzo in color glucose negative bilirubin negative ketone negative specific gravity greater than or equal to 1.030 blood negative pH 5.5 protein trace urobilinogen 0 2, nitrite negative, leukocyte negative Labs: Lab Results 08/17/25 Range/Units 18:26 POC Urine Color [place] POC Urine Clarity Cloudy POC Urine pH 5.5 POC Ur Specif [place] 1.030 POC Urine Protein Trace (Negative) POC Ur Glucose (UA) Negative (Negative) POC Urine Ketones Negative (Negative) POC Urine Blood Negative (Negative) POC Urine Nitrite Negative (Negative) POC Urine Bilirubin Negative (Negative) POC Urine Urobilinogen 0.2 POC U Leukocyte Esteras Negative (Negative) Critical Care Time Critical Care Time Critical Care Time: No Discharge Plan Discharge Clinical Impression: Conjunctivitis, right eye, Dysuria, Upper respiratory infection with cough and congestion Patient Disposition: Home Condition: Stable Instructions: Antibiotic Form, Upper Respiratory Infection (ED), Dysuria (ED), Acute Cough (ED), Conjunctivitis (ED) Additional Instructions: Increase fluids especially juices and water [id number] cough and cold medicine of your choice for your symptoms continue your Mucinex daily may include Zyrtec Claritin or Qing daily Continue your inhaler/nebulizer as directed heat to the face 20-30 minutes 4-6 times a day for pain Salt water gargles, throat lozenges or throat sprays as desired Antibiotic as directed--finished the medication Cold compresses to the eyes for comfort May need warm compresses to remove debris in the morning When cleaning the eyes used a washcloth in one direction then change washcloths or use a cotton ball in one direction and then his cotton balls Eyedrops as directed--may be more soothing if left in the refrigerator Do not share medicine--do not touch the eye with the medicine Tylenol or ibuprofen for pain Avoid screen time--television, computer, tablet or phone. Also no reading or driving Follow-up with PCP or optical instruments supervisor as directed no improvement 48 hours follow-up ophthalmology Increase fluids especially cranberry juice and water Avoid caffeine and carbonated beverages Antibiotic as directed Medicine as directed--cautioned it will cause your urine to be bright orange Tylenol/ibuprofen for pain or fever Follow-up with her primary care provider if further problems or concerns Recheck if you have fever over 101, nausea and vomiting. If your symptoms persist, change or worsen significantly before you can contact your personal physician then please, without delay, go to the emergency department for further evaluation. Follow-up with PCP in 7-10 days or sooner if needed Follow up with PCP soon in regards to your blood pressure which is elevated above threshold for referral. Blood pressure above 120/80 may indicate pre-hypertension. 185/64 urine culture sent Patient Language: Tamazight Prescriptions: New ofloxacin 0.3 % drops See Rx Instructions .ROUTE .COMPLEX Qty: 10 0RF Rx Instructions: put 1-2 drps into affected eye(s) every 2-4 h x 2 days, then 1-2 drps 4 times/day days 3-7 cephalexin 500 mg capsule 500 mg PO Q12H Qty: 20 0RF Rx Instructions: complete all doses of prescription patient reports has had prior therapy with this medication No Action ergocalciferol (vitamin D2) [Vitamin D2] 1,250 mcg (50,000 unit) capsule Follow-up/Referrals: UNKNOWN,DOCTOR [Primary Care Provider] Time of Disposition: 18:51 Quality Alexander Coma Scale Eyes: Open Verbal: Oriented and Alert Motor: Follows Commands Alexander Coma Total Score: 15
[2025-08-17 18:45] LABS: EDUAAPPEAR Cloudy; EDUABILI Negative (Negative); EDUABLOOD Negative (Negative); EDUACOLOR1 Amber; EDUAGLUCOSE Negative (Negative); EDUAKETONE Negative (Negative); EDUALEUKO Negative (Negative); EDUANITRATE Negative (Negative); EDUAPH 5.5; EDUAPROTEIN Trace (Negative); EDUASPGRAVITY 1.030; EDUAUROBILI 0.2
--- OUTSIDE RECORDS SUMMARY | 2025-08-17 20:32 | XMS_ITS | Clinical Summary ---
Author Organization [facility] [place] nter Address [address] [place], [place] Care Team Providers Care Obstetric Anaesthetist Name Role Phone Kade Newsome (Jeffy) Primary [...] HIV Screening 1967 Hepatitis C Screening 1967 Annual Physical 1969 DTAP,Tdap and Td Vaccines (1 - Tdap) 1985 Pap Smear 1988 Cervical Cancer Screening 1997 HPV/Cotest 1997 Mammogram 2007 Cologuard DNA Screen for Colon CA 2012 Fecal Occult Blood Testing 2012 Pneumococcal Vaccine: 50+ Ye ars (1 of 1 - PCV) 2017 Zoster Vaccines (1 of 2) 2017 Depression Screening Yearly 10/04/2024 Influenza Vaccine 05/04/2025 HIB Vaccines Aged Out No longer eligi ble based on patient's age to complete this topic IPV Vaccines Aged Out No longer eligi ble based on patient's age to complete this topic Meningococcal Vaccine Aged Out No cal becka eligible based on patient's age to complete this topic Rotavirus Vaccines Aged Out No longer eligible based on patient's age to complete this topic Insurance [place] [id number] [employer] Care Teams Obstetric Anaesthetist Relationship Specialty Start Date End Date Kade Newsome MD (Ioannis) [address] [place] [id number] PCP - General Family Medicine 06/01/23
--- OUTSIDE RECORDS SUMMARY | 2025-08-17 20:32 | XMS_ITS | Patient Health Record ---
Author Organization [facility] Address [address] [facility] [address] [place] [address] Care Team Providers Care Machine Silver Stripper Name Role Phone Mercedez WATKINS, Jeffy Weinberg) [...] spray in each nostril Nasally once a day; Duration: 7 day(s) 09/18/2023 Active Social History Tobacco [...] Insured Coverage Start Date Coverage End Date [facility] [address] [place] [address] [id number] PASTORA THOMPSON Self - patient is the insured Medical (General) History Medical History History ICD Code Breathing difficult R06.89
== END 2025-08-17 18:59 | disposition home or self-care (01) ==
PROVIDERS: Emergency Provider Registered Nurse
DX: H10.9 Unspecified conjunctivitis (principal); R30.0 Dysuria; J06.9 Acute upper respiratory infection, unspecified
CPT/HCPCS: 81003; 87086; 99213; G0463